=== PATIENT | female | born 2000 | race Caucasian/White ===

== ENCOUNTER 2020-12-23 15:11 | Emergency (ER) | payer BC ==
[~2020-12-23] VITALS: Ht 170.2 cm; Wt 71.8 kg
[2020-12-23] MEDS ORDERED: CLARITIN 1010 MG/TAB PO (15:27)
[2020-12-23] MEDS ORDERED: CONCERTA18 MG PO (15:27)
[2020-12-23] MEDS ORDERED: ALLEGRA 60MG TA60 MG PO (15:27)
[2020-12-23 16:25] LABS: BASO % 0.4 % (0.0-2.0); EOS % 0.3 % (0-4.0); GRAN # 8.8 (1.4-6.5); GRAN % 86.9 % (42.2-75.2); HEMATOCRIT 42.7 % (37.0-47.0); HEMOGLOBIN 14.8 g/dl (12.5-16.0); LYMPH # 0.8 (1.2-3.4); LYMPH % 8.1 % (20.0-51.0); MEAN CELL VOLUME 96 fl (80.0-100.0); MEAN CORPUSCULAR HEMOGLOBIN 33 pg (27.0-31.0); MEAN CORPUSCULAR HGB CONC 35 g/dl (33.0-37.0); MONO # 0.4 (0.1-0.6); MONO % 3.9 % (1.7-9.3); PLATELET COUNT 297 K/mm3 (130-400); RED BLOOD COUNT 4.43 M/mm3 (4.10-5.30)
[2020-12-23 16:31] LABS: BILIRUBIN,TOTAL 1.2 mg/dL (0.0-1.0); CALCIUM 10.3 mg/dL (8.4-10.2); CREATININE, serum 0.58 (0.52-1.25); TOTAL PROTEIN 8.2 gm/dL (6.4-8.2)
[2020-12-23] MEDS ORDERED: ANTIVERT 25MG25 MG PO (18:37)
[2020-12-23] MEDS ORDERED: ZOFRAN ODT4 MG PO (18:37)
[2020-12-23 19:02] VITALS: BP 118/65; PULSE 86; TEMP 97.4
== END 2020-12-23 19:00 | disposition home or self-care (01) ==
LOC: COL.ER 15:11
PROVIDERS: Personal Emergency Response Attendant
DX: R42 Dizziness and giddiness (principal)
CPT/HCPCS: J1200; J2550; J7030

== ENCOUNTER 2021-06-30 09:14 | Emergency (ER) | payer BC ==
[~2021-06-30] VITALS: Ht 170.2 cm; Wt 74.1 kg
[~2021-06-30 09:14] MED LIST: ALLEGRA 60MG TA60 MG PO; ANTIVERT 25MG25 MG PO; CLARITIN 1010 MG/TAB PO; CONCERTA18 MG PO; ZOFRAN ODT4 MG PO
[2021-06-30 09:29] VITALS: BP 130/81; TEMP 98.3
[2021-06-30 10:03] LABS: COLLECTION METHOD CLEAN CATCH
[2021-06-30 10:16] LABS: MUCOUS Present (NOT PRESENT); PH 5 (5-8); SQUAMOUS EPITHELIAL 0-2 /hpf (0-10); URINE APPEARANCE Hazy (CLEAR/HAZY); URINE BACTERIA Many /hpf (NONE SEEN); URINE BILIRUBIN Negative (NEGATIVE); URINE BLOOD 3+ (NEGATIVE); URINE COLOR Amber (YELLOW); URINE GLUCOSE Negative (NEGATIVE); URINE KETONE Trace (NEGATIVE); URINE LEUKOCYTE ESTERASE 1+ (NEGATIVE); URINE NITRATE Positive (NEGATIVE); URINE PROTEIN(semi-quant) 2+ (NEGATIVE); URINE UROBILINOGEN >=4.0 (NEGATIVE)
[2021-06-30] MEDS ORDERED: NORCO 325 MG-51 TAB PO (11:49)
[2021-06-30] MEDS ORDERED: CIPRO 500MG TA500 MG PO (11:49)
[2021-06-30 12:05] VITALS: PULSE 72
== END 2021-06-30 12:05 | disposition home or self-care (01) ==
LOC: COL.ER 09:14
PROVIDERS: Personal Emergency Response Attendant
DX: N39.0 Urinary tract infection, site not specified (principal); Z32.02 Encounter for pregnancy test, result negative